=== PATIENT | male | born 1985 | race Caucasian/White ===

== ENCOUNTER 2017-02-24 17:24 | Emergency (ER) | payer OTHER ==
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
[~2017-02-24 17:24] MED LIST: ALBUTEROL17 G1 IH; BACTRIM DS TABL1 TA1 PO; FUNGAL CREAM; HYDROCORTISONE28 GM TOP; KEFLEX500 MG PO; LORTAB 5/500 TA1 TA1 PO; MAGIC BUTT CREAM TOP; MUPIROCIN1 GM TOP; ORUDIS75 M1 PO; VICODIN 5/1 TAB 5/50 PO; ZITHROMAX1 G/PKT PO
== END 2017-02-24 19:12 | disposition home or self-care (01) ==
LOC: CFTX 17:24
DX: S33.5XXA Sprain of ligaments of lumbar spine, initial encounter (principal); I10 Essential (primary) hypertension; R51 Headache; R19.7 Diarrhea, unspecified; M41.9 Scoliosis, unspecified; V43.52XA Car driver injured in collision with other type car in traffic accident, initial encounter
CPT/HCPCS: 72100; 99283; J1885